=== PATIENT | female | born 1940 | race Caucasian/White ===

== ENCOUNTER 2023-12-26 12:15 | Emergency (ER) | payer MEDICARE, BC, SELFPAY ==
[2023-12-26 12:18] VITALS: BP 175/73
--- NOTE | 2023-12-26 12:57 | ED.GENMED ---
History of Present Illness
General
Chief Complaint: Fall
Source: patient
Exam Limitations: none
Time Seen by Provider: 12/26/23 12:46
Travel History
Have you had any contact with someone who has COVID-19?: No
Do you have any symptoms of coronavirus? Fever > 100 degrees, chills, cough, shortness of breath, sore throat, loss of taste or smell, muscle aches, or headache?: No
History of Present Illness
History of Present Illness:
83-year-old female presenting with right-sided back pain status post mechanical fall. Patient states that she was sitting in her recliner when she accidentally slid out onto the ground. Patient denies striking her head or loss of consciousness.
Patient reports right-sided posterior rib pain. Patient denies shortness of breath, chest pain, midline back pain, or extremity pain. Patient reports skin tear to right elbow. Tetanus unknown. Patient denies any elbow pain, numbness, weakness or
tingling.
Past History
Past History
ED Past Medical History: CAD, HTN, Hypercholesterolemia and Other (Arthritis)
ED Past Surgical History: Cardiac (CABG)
Social History
Tobacco: Former smoker
Phy Exam
Physical Exam
Physical Exam:
General: Alert, no acute distress
Head: NCAT
Eyes: clear conjunctiva
Neck: supple, no midline cervical tenderness to palpation
Chest: regular rate and rhythm, murmur. no anterior chest wall tenderness to palpation. rash
Lungs: clear to auscultation bilaterally. No wheezes, rales, or rhonchi. Speaking full unlabored sentences. No respiratory distress.
Abdomen: soft, nondistended nontender. No rebound or guarding.
MSK: no lower extremity edema bilaterally. No deformity. No midline thoracic or lumbar tenderness to palpation. no right elbow tenderness to palpation. right elbow full range of motion. 2+ radial pulse. right posterior rib pain to palpation. no step
off or deformity. no overlying
Skin: warm, dry. skin tear to right elbow, no active bleeding. no foreign bodies
Neuro: Alert and oriented x3. no focal deficits. ambulatory with walker (baseline)
Course
Orders/Labs/Results
Orders:
Orders
12/26/23 12:21
CR Elbow - Right Min 3 Views Urgent
Comment:
Reason For Exam: fall
Ribs, Right 3 View W/PA Chest [CR Ribs-right 3 Vw W/pa Chest*] Urgent
Comment:
Reason For Exam: fall
12/26/23 13:07
Tetanus/Diphth/Acelpertussis [Adacel] 0.5 ml IM .ONCE ONE
Vital Signs
Initial and Last Documented VS:
Initial Vital Signs
Temp Pulse Resp BP Pulse Ox
98.5 F 66 18 175/73 98
12/26/23 12:18 12/26/23 12:18 12/26/23 12:18 12/26/23 12:18 12/26/23 12:18
Last Documented Vital Signs
Temp Pulse Resp BP Pulse Ox
98.5 F 66 18 175/73 98
12/26/23 12:18 12/26/23 12:18 12/26/23 12:18 12/26/23 12:18 12/26/23 12:18
Comment
Comment:
Patient presents to the Emergency Department with ___right posterior rib pain, right elbow skin tear s/p mechanical fall
Number and Complexity of Problems Addressed at the Encounter
� Chronic conditions affecting care:
� Acute Exacerbation and/or Progression of Chronic Illness:
� Differential Diagnosis includes: rib fracture, pneumothorax, elbow fracture/dislocation, skin tear, mechanical fall
Amount and/or Complexity of Data to be Reviewed and Analyzed
� I performed an independent evaluation of and my interpretation is:
EKG:
CT:
Xrays: right elbow: no acute fracture or dislocation. xray ribs: no grossly displaced rib fractures, no pneumothorax
Laboratory Studies:
Other:
� Review of other/old records reveals:
� Clinical information was obtained by an independent historian:
� Prescriptions/Medications Considered but not given:
� Further testing considered but not performed:
Risk of Complications and/or Morbidity or Mortality of Patient Management
� Social Determinants of health affecting care:
� Discussion with other providers (PCP, Hospitalists, Consultants, etc):
� Escalation of care including admission/observation vs risk of discharge considered: 83-year-old female presenting status post mechanical fall with right posterior rib pain and right elbow skin tear. Patient denies any loss of consciousness, no
dizziness before or after fall. Patient denies any shortness of breath, back pain or extremity pain. Will obtain x-ray to assess for fracture, dislocation, pneumothorax. Will update tetanus, clean wound, xray right ribs and elbow which were
reviewed and negative. Cleaned wound with saline, applied steri strips to approximate skin tear. Patient walks with walker at baseline. Ambulatory with walker in ED. Will discharge home with PCP follow up
*Critical Care Note
Total Time (30-74mins, 75-104mins- exclusive of procedures): Not Applicable
ED Attending Note
-
Portions of this chart may have been created with voice recognition software.� Occasional wrong word or��sound alike� substitutions may have occurred due to the inherent limitations of voice recognition software.
Discharge Plan
Departure
Patient Disposition: Home (Routine Discharge)
Date of Disposition: 12/26/23
Time of Disposition: 13:32
Patient with high blood pressure during this ER visit?: Yes
Condition: Good
Discharge Problem:
Rib pain on right side, Skin tear of elbow without complication
Instructions: Skin Abrasions (DC), Bruised Rib (DC), BLOOD PRESSURE
Prescriptions:
No Action
atorvastatin 10 MG tablet
10 mg PO HS
lisinopril 20 MG tablet
20 mg PO HS
pramipexole 0.5 MG tablet
0.75 mg PO HS
hydrocodone-acetaminophen 1 TABLET tablet
1 tab PO BIDPRN PRN (Reason: moderate pain)
Patient Comments:
02/28/2021: last filled 01/20/21, 60 tabs for 30 days from [facility]
cephalexin 500 MG capsule
500 mg PO QID
levothyroxine 125 MCG tablet
125 mcg PO HS
metoprolol tartrate 50 MG tablet
25 mg PO BID
aspirin 81 MG tablet,chewable
81 mg PO HS
collagenase clostridium histo. [Santyl] 90 GM ointment
15 gm APPLIC DAILY Qty: 1 0RF
Referrals:
Lucia Allen PA-C [Family Provider] -
Activity Restrictions/Additional Instructions:
Follow up with primary care doctor in 1-2 days
Take tylenol 975mg every 6 hours as needed for pain
Return to the emergency department for shortness of breath or new/worsening symptoms
Interventions
Interventions:
*Risk Screen - Suicide Last Done: 12/26/23 12:18
*General Assessment Last Done: 12/26/23 12:18
*Neglect/Abuse Screening Last Done: 12/26/23 12:18
*ED COVID-19 Vaccine History Last Done: 12/26/23 12:18
*Nursing Disposition Last Done: 12/26/23 14:15
ED-Musculoskeletal Assessment Last Done: 12/26/23 12:56
ED- Neurological Assessment Last Done: 12/26/23 12:56
ED-Skin Assessment Last Done: 12/26/23 12:56
Discharge Date and Time
Discharge Date/Time: 12/26/23 14:15
Print Language: UKRAINIAN
[2023-12-26] MEDS: ADACEL 0.5 ML IM (13:26)
== END 2023-12-26 14:15 | disposition home or self-care (01) ==
LOC: EMR 12:15
PROVIDERS: EMERGENCY PHYSICIAN Emergency Medicine; FAMILY PHYSICIAN Physician Assistant Medical
DX: R07.81 Pleurodynia (principal); S51.011A Laceration without foreign body of right elbow, initial encounter; M54.9 Dorsalgia, unspecified; W07.XXXA Fall from chair, initial encounter; I25.10 Atherosclerotic heart disease of native coronary artery without angina pectoris; I10 Essential (primary) hypertension; M19.90 Unspecified osteoarthritis, unspecified site; E78.00 Pure hypercholesterolemia, unspecified; Z95.1 Presence of aortocoronary bypass graft; Z87.891 Personal history of nicotine dependence
CPT/HCPCS: 99284; 90471; 71101; 73080; 90715

== ENCOUNTER → 2023-12-28 11:14 | Outpatient (REF) | payer OTHER, MEDICARE, BC, SELFPAY ==
[2023-12-28 11:52] LABS: Hematocrit 38.7 % (37.0-47.0); Hemoglobin 12.7 g/dL (12.0-16.0); Mean Corp Hgb Conc. 32.8 g/dL (33.0-37.0); Mean Corpuscular Hgb 29.7 pg (27.0-31.0); Mean Corpuscular Volume 90.4 fL (81.0-99.0); Mean Platelet Volume 9.8 fL (7.4-10.4); Platelet Count 245 10^3/uL (130-400); Red Blood Cell Count 4.28 10^6/uL (4.20-5.40); Red Cell Dist. Width 14.6 % (11.5-14.5); White Blood Cell Count 11.7 10^3/uL (4.8-10.8)
[2023-12-28 12:13] LABS: ALT (SGPT) 12 U/L (0-35); AST (SGOT) 20 U/L (14-36); Alkaline Phosphatase 71 U/L (38-126); Blood Urea Nitrogen 21 mg/dl (7-17); Calcium 9.3 mg/dl (8.4-10.2); Carbon Dioxide 28 mmol/L (22-30); Chloride 101 mmol/L (98-107); Glucose 103 mg/dl (70-99); Magnesium 1.8 mg/dl (1.6-2.3); Sodium 133 mmol/L (135-145); Total Bilirubin 1.3 mg/dl (0.2-1.3); Total Protein 6.9 g/dl (6.3-8.2); eGFR > 60.00
[2023-12-28 12:27] LABS: Free T4 1.31 ng/dl (0.78-2.19)
[2023-12-28 12:42] LABS: TSH 3.58 uIU/ml (0.47-4.68)
== END ==
LOC: OLABWHC 11:14
PROVIDERS: ATTENDING PHYSICIAN Internal Medicine
DX: I10 Essential (primary) hypertension (principal); E03.9 Hypothyroidism, unspecified; I25.10 Atherosclerotic heart disease of native coronary artery without angina pectoris
CPT/HCPCS: 36415; 80053; 83735; 84439; 84443; 85027

== ENCOUNTER 2024-02-10 13:54 | Inpatient (IN) | payer MEDICARE, BC, SELFPAY ==
[2024-02-10] VITALS (12 sets, daily range): BP systolic 98–158; BP diastolic 52–123; BMI 20.5
[2024-02-10 11:05] LABS: % Basophils 0.2 % (0-2); % Eosinophils 0.1 % (0-6); % Immature Granulocytes 0.8 % (0-0.5); % Lymphocytes 8.7 % (20.5-51.1); % Neutrophils 83.2 % (42.2-75.2); Absolute Immature Granulocytes 0.1 10^3/uL (0-0.05); Absolute Lymphocytes 1.6 10^3/uL (1.2-3.4); Absolute Monocytes 1.3 10^3/uL (0.1-0.6); Absolute Neutrophils 15.5 10^3/uL (1.4-6.5); Hematocrit 33.1 % (37.0-47.0); Hemoglobin 11.5 g/dL (12.0-16.0); Mean Corp Hgb Conc. 34.7 g/dL (33.0-37.0); Mean Corpuscular Hgb 29.6 pg (27.0-31.0); Mean Corpuscular Volume 85.1 fL (81.0-99.0); Mean Platelet Volume 9.2 fL (7.4-10.4); Nucleated Red Blood Cells % 0 %; Platelet Count 283 10^3/uL (130-400); Red Blood Cell Count 3.89 10^6/uL (4.20-5.40); Red Cell Dist. Width 14.6 % (11.5-14.5); White Blood Cell Count 18.6 10^3/uL (4.8-10.8)
[2024-02-10] MEDS: NSS 500 IV (11:08)
[2024-02-10 11:09] LABS: ALT (SGPT) 20 U/L (0-35); AST (SGOT) 31 U/L (14-36); Albumin 3.8 g/dl (3.5-5.0); Alkaline Phosphatase 134 U/L (38-126); Blood Urea Nitrogen 36 mg/dl (7-17); Calcium 9.3 mg/dl (8.4-10.2); Carbon Dioxide 24 mmol/L (22-30); Chloride 102 mmol/L (98-107); Creatine Phosphokinase 374 U/L (30-135); Glucose 146 mg/dl (70-99); Potassium 3.7 mmol/L (3.5-5.1); Sodium 138 mmol/L (135-145); Total Bilirubin 1.3 mg/dl (0.2-1.3); Total Protein 6.7 g/dl (6.3-8.2); eGFR > 60.00
[2024-02-10 11:15] LABS: Lactic Acid 1.3 mmol/L (0.7-2.0)
[2024-02-10 12:08] LABS: Urine Albumin 1+ (Neg - Trace); Urine Bilirubin 1+ (Negative); Urine Character Very Cloudy (Clear); Urine Color Yellow; Urine Glucose Negative (Negative); Urine Ketone 1+ (Negative); Urine Leukocyte 2+ (Negative); Urine Nitrite Negative (Negative); Urine Occult Blood 1+ (Negative); Urine Specific Gravity 1.025 (<1.030); Urine Urobilinogen Negative (Neg - 1+)
--- NOTE | 2024-02-10 12:36 | ED.GENMED ---
History of Present Illness
General
Chief Complaint: Fall
Source: patient and family
Time Seen by Provider: 02/10/24 10:23
Travel History
Have you had any contact with someone who has COVID-19?: No
Do you have any symptoms of coronavirus? Fever > 100 degrees, chills, cough, shortness of breath, sore throat, loss of taste or smell, muscle aches, or headache?: No
History of Present Illness
History of Present Illness:
83-year-old female presents after she was found on the floor this morning by [facility] staff. Patient was reportedly given her meds last night. Patient arrives complaining of right leg pain. Unknown how long she was on the floor for.
Patient complains of pain in the right hip area. Is not sure if she hit her head. She denies neck or back pain. Found to be soiled with stool
Past History
Past History
ED Past Medical History: CAD, HTN, Hypercholesterolemia and Other (Arthritis)
ED Past Surgical History: Cardiac (CABG)
Social History
Tobacco: Former smoker
Phy Exam
Physical Exam
Physical Exam:
CONSTITUTIONAL Patient alert and oriented to person, place. ill-appearing. Vital signs reviewed.
HEAD atraumatic, normocephalic.
EYES eyelids normal to inspection, Extraocular muscles intact, Conjunctiva normal, Sclera normal.
NECK normal range of motion, Trachea midline, no jugular venous distention.
RESPIRATORY CHEST No respiratory distress noted, Chest expansion equal, diminished bilateral bases.
ABDOMEN abdomen nontender, Bowel sounds normal. No distention.
BACK skin breakdown noted to the right lateral posterior pelvic rim. Old skin breakdown noted to the posterior right shoulder.
UPPER EXTREMITY left elbow skin tear, right elbow skin breakdown.
LOWER EXTREMITY unable to range the right lower extremity due to pain in the right hip. There is tenderness at the right hip. Mild swelling to the proximal femur.
NEURO Speech normal, No focal motor deficits, Cranial Nerves intact to screening exam.
SKIN skin warm, dry, and normal in color.
Course
Orders/Labs/Results
Orders:
Orders
02/10/24 10:27
Hip, Right 2-3 Views [CR Hip - RT w/wo Pel 2-3 Vw*] Urgent
Comment:
Reason For Exam: R sided pain, possible fall
Include a pelvis x-ray?: Yes
02/10/24 10:29
CT Head W/o Iv Contrast Urgent
Comment:
Reason For Exam: possible fall
CR Chest - 2 Views Urgent
Comment:
Reason For Exam: possible fall
02/10/24 10:33
0.9% Sodium Chloride 500 ml [Nss] 500 ml IV BOLUS
02/10/24 10:48
CPK [Creatine Phosphokinase] Urgent
Complete Blood Count/With Diff Urgent
Comprehensive Metabolic Panel Urgent
Lactic Acid Q4H
Comment: CANCEL 2nd LACTIC ACID IF 1st LACTIC ACID IS LESS THAN 2
Blood Culture Q30M
KENDRA Source: Blood/Venous
Specimen Description:
Blood Culture Q30M
KENDRA Source: Blood/Venous
Specimen Description:
02/10/24 11:13
Urinalysis Reflex To Culture Urgent
Date Specimen was Collected: 02/10/24
Time Specimen was Collected: 11:07
Urine Microscopic Reflex Cult Urgent
Urine Culture Urgent
KENDRA Source: U
Specimen Description:
Date Specimen was Collected: 02/10/24
Time Specimen was Collected: 11:07
02/10/24 12:39
Electrocardiogram (*1) Urgent
Reason for Study: Other
Other Reason for Exam: weakness
EKG- Treatment ONCE
02/10/24 12:44
CefTRIAXone [Rocephin] 1,000 mg IV NOW STA
02/10/24 14:30
Lactic Acid Q4H
Comment: CANCEL 2nd LACTIC ACID IF 1st LACTIC ACID IS LESS THAN 2
Abnormal Lab Results
02/10/24 02/10/24
10:48 11:13
WBC 18.6 H 10^3/uL
(4.8-10.8)
RBC 3.89 L 10^6/uL
(4.20-5.40)
Hgb 11.5 L g/dL
(12.0-16.0)
Hct 33.1 L %
(37.0-47.0)
RDW 14.6 H %
(11.5-14.5)
Abs Immat Gran (auto) 0.1 H 10^3/uL
(0-0.05)
Absolute Neuts (auto) 15.5 H 10^3/uL
(1.4-6.5)
Absolute Monos (auto) 1.3 H 10^3/uL
(0.1-0.6)
Immature Gran % 0.8 H %
(0-0.5)
Neutrophils % 83.2 H %
(42.2-75.2)
Lymphocytes % 8.7 L %
(20.5-51.1)
BUN 36 H mg/dl
(7-17)
Glucose 146 H mg/dl
(70-99)
Alkaline Phosphatase 134 H U/L
(38-126)
Creatine Kinase 374 H U/L
(30-135)
Urine Ketones 1+ A
(Negative)
Ur Occult Blood Reflex 1+ A
(Negative)
Urine Bilirubin 1+ A
(Negative)
Leukocyte Esterase Rfl 2+ A
(Negative)
Urine RBC 11-15 A /HPF
(0-2)
Urine WBC (Reflex) 40-50 A /HPF
(0-5)
Urine Bacteria (Reflex) Many A
(Negative)
Urine Albumin (Reflex) 1+ A
(Neg - Trace)
02/10/24 10:48
02/10/24 10:48
Vital Signs
Initial and Last Documented VS:
Initial Vital Signs
Temp Pulse Resp BP Pulse Ox
97.2 F 76 16 142/53 86
02/10/24 10:20 02/10/24 10:20 02/10/24 10:20 02/10/24 10:20 02/10/24 10:20
Last Documented Vital Signs
Temp Pulse Resp BP Pulse Ox
97.2 F 74 19 143/66 94
02/10/24 10:20 02/10/24 12:30 02/10/24 12:30 02/10/24 12:01 02/10/24 12:30
MDM/Problems Addressed
MDM/Problems Addressed:
Hip fracture, volume depletion, UTI, skin tear
*Radiology
Radiology exam reviewed: preliminary read by ED provider (Neck fracture)
*Pulse Oximetry
Patient hypoxic: no
*Critical Care Note
Total Time (30-74mins, 75-104mins- exclusive of procedures): 30 minutes
Data Reviewed
Source: patient and family
Prescriptions/Medications Considered But Not Given:
Considered cervical spine imaging but no tenderness no pain
Patient Management
Discussion with other providers: Hospitalist and Assembly Supervisor (Discussed with orthopedics)
ED Attending Note
-
Portions of this chart may have been created with voice recognition software.� Occasional wrong word or��sound alike� substitutions may have occurred due to the inherent limitations of voice recognition software.
Discharge Plan
Departure
Patient Disposition: Admit
Date of Disposition: 02/10/24
Time of Disposition: 12:42
Admit to: Telemetry
Presentation/result/management discussed w/ accepting MD/DO: Hospitalist
Discharge Problem:
Closed hip fracture, MILD RHABDOMYOLYSIS, Volume depletion, Acute UTI
Prescriptions:
No Action
atorvastatin 10 MG tablet
10 mg PO HS
pramipexole 0.5 MG tablet
1 mg PO HS
hydrocodone-acetaminophen 1 TABLET tablet
1 tab PO Q6HPRN PRN (Reason: moderate pain)
metoprolol tartrate 50 MG tablet
12.5 mg PO BID
aspirin 81 MG tablet,chewable
81 mg PO DAILY
acetaminophen [Tylenol] 325 mg Tablet
650 mg PO Q6HPRN PRN (Reason: MILD PAIN)
oxybutynin chloride 10 mg Tablet Extended Release 24hr
10 mg PO DAILY
amoxicillin 500 mg Tablet
500 mg PO Q8H
amlodipine [Norvasc] 10 mg Tablet
10 mg PO DAILY
levothyroxine [Synthroid] 200 mcg Tablet
200 mcg PO DAILY
gabapentin 100 mg Capsule
200 mg PO HS
Referrals:
Lucia Allen PA-C [Family Provider] -
Interventions
Interventions:
*Risk Screen - Suicide Last Done: 02/10/24 10:20
*General Assessment Last Done: 02/10/24 10:20
*Neglect/Abuse Screening Last Done: 02/10/24 10:20
ED- Fall Risk Assessment Last Done: 02/10/24 11:25
ED-Musculoskeletal Assessment Last Done: 02/10/24 11:25
ED- Neurological Assessment Last Done: 02/10/24 11:25
ED-Skin Assessment Last Done: 02/10/24 11:25
Discharge Date and Time
Print Language: SUDANESE
[2024-02-10 12:37] LABS: Urine Bacteria Many (Negative); Urine White Cell 40-50 /HPF (0-5)
--- NOTE | 2024-02-10 13:24 | HPS.HSE ---
Family Physician
-
Family Physician: Lucia Allen
Chief Complaint
-
Hip fracture
History of Present Illness
83-year-old female found down on the ground and [facility]. Unable to get up. Transported to the emergency room and diagnosed with a right hip fracture.
Patient herself is a poor historian and details obtained mainly from daughter and records.
She currently has no complaints.
Medical History
Past Medical History
Past Medical History: Reports Other
Additional Past Medical History:
CAD
Essential hypertension
Hyperlipidemia
Hypothyroidism
Restless leg syndrome
Lumbar spinal stenosis
Head and neck cancer
Osteonecrosis of the jaw
Past Surgical History: Reports Other
Additional Past Surgical History:
CABG
Social History
Tobacco: Former Smoker
Alcohol: None
Drug: None
Living: Assisted Living
Family History
Family History: Not pertinent
Allergies / Home Medications
Allergies reflects when Allergies were last updated in [facility].
Home Medications with original date entered in [facility]
Allergy/Medication List:
Allergies
Allergy/AdvReac Type Severity Reaction Status Date / Time
No Known Allergies Allergy Verified 02/10/24 10:20
Home Medications
aspirin 81 mg chewable tablet 81 mg PO DAILY 02/28/21
atorvastatin 10 mg tablet 10 mg PO HS 02/28/21
hydrocodone 7.5 mg-acetaminophen 325 mg tablet 1 tab PO Q6HPRN PRN moderate pain 02/28/21
metoprolol tartrate 50 mg tablet 12.5 mg PO BID 02/28/21
pramipexole 0.5 mg tablet 1 mg PO HS 02/28/21
acetaminophen 325 mg tablet (Tylenol) 650 mg PO Q6HPRN PRN MILD PAIN 02/10/24
amlodipine 10 mg tablet (Norvasc) 10 mg PO DAILY 02/10/24
amoxicillin 500 mg tablet 500 mg PO Q8H 02/10/24
gabapentin 100 mg capsule 200 mg PO HS 02/10/24
levothyroxine 200 mcg tablet (Synthroid) 200 mcg PO DAILY 02/10/24
oxybutynin chloride 10 mg tablet,extended release 24 hr 10 mg PO DAILY 02/10/24
Review of Systems
-
Unable to obtain full review of systems at this time due to: Acuity
History Source: Family
A 12 point ROS was completed and negative except as noted: Yes
: Reports No Symptoms
Musculoskeletal: Reports Joint Pain (Right-sided hip pain)
Physical Exam
Vital Signs
Vital Signs
Temp Pulse Resp BP Pulse Ox
97.2 F 74 19 143/66 94
02/10/24 10:20 02/10/24 12:30 02/10/24 12:30 02/10/24 12:01 02/10/24 12:30
Physical Exam
General: Well Developed, Well Nourished, No Apparent Distress and Comfortable
HEENT: NormoCephalic and Anicteric
Respiratory: Clear
Cardiac: S1/S2 and Regular Rhythm
GI: Soft, Non Tender and Non Distended
Genito-urinary: Deferred by me
Musculoskeletal: No Clubbing, No Cyanosis, Edema, Left Lower Extremity and Edema, Right Lower Extremity
Skin: Warm, Dry and Other (Bilateral lower extremity hyperpigmentation, multiple skin tears on extremities)
Neuro: Awake and Alert
Hematologic/Lymphatic: No Lymphadenopathy
Psych: Calm
Laboratory Results
-
02/10/24 10:48
02/10/24 10:48
Laboratory Results
Lactic Acid 1.3 mmol/L (0.7-2.0) 02/10/24 10:48
Total Bilirubin 1.3 mg/dl (0.2-1.3) 02/10/24 10:48
AST 31 U/L (14-36) 02/10/24 10:48
ALT 20 U/L (0-35) 02/10/24 10:48
Alkaline Phosphatase 134 U/L (38-126) H 02/10/24 10:48
Impression/Plan
-
Acute traumatic right proximal femur intertrochanteric fracture -suspect related to fall out of bed, underlying osteoporosis.
Admit to MedSurg. Consult orthopedics. Analgesics. I spoke with Dr. Hough from orthopedics, plan for operative repair on Sunday. Okay to start Lovenox for DVT prophylaxis then hold on Sunday.
Appears medically stable to proceed for operative intervention. EKG today reviewed.
Presumed urinary tract infection -asymptomatic but pyuria noted. Check cultures. Continue empiric ceftriaxone for now. Given her underlying cognitive impairment she may not be a reliable historian.
Mild traumatic rhabdomyolysis -IV fluids. Apparently was found down on the ground by staff, unknown duration.
CAD/CABG -stable.
Essential hypertension -stable.
Hyperlipidemia -continue atorvastatin.
Hypothyroidism -continue levothyroxine.
Restless leg syndrome
History of head and neck cancer
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 On chronic suppressive amoxicillin.
DNR -confirmed with daughter.
Daughter Sivakumar updated at the bedside.
[2024-02-10] MEDS: ROCEPHIN 1000 MG IV (13:35)
[2024-02-10] MEDS: NSS 1000 IV (15:53)
[2024-02-10] MEDS: AMOXIL 500 MG PO ×2 (15:53→23:28)
--- NOTE | 2024-02-10 16:18 | PTCARENOTE ---
pt admitted to [facility]. pt states no pain when not moving. pt oriented to self. room air breath sounds diminished. ivf running as ordered. skin tears noted on both elbows and right bonilla at deferent stages of healing. sacrum st [address]
with small open area. red bruised area around neck. pt daughter states that is from radiation treatments.
[2024-02-10] MEDS: LOVENOX 40 MG SC (17:56)
[2024-02-10] MEDS: LOPRESSOR 12.5 MG PO (20:39)
[2024-02-10] MEDS: TYLENOL 650 MG PO (20:47)
[2024-02-10] MEDS: NEURONTIN 200 MG PO (23:27)
[2024-02-10] MEDS: LIPITOR 10 MG PO (23:28)
[2024-02-10] MEDS: MIRAPEX, GENERIC 1 MG PO (23:28)
[2024-02-11] MEDS: MORPHINE SULFATE 2 MG IV ×2 (00:49→06:16)
[2024-02-11] MEDS: NSS 1000 IV ×2 (05:04→17:54)
[2024-02-11 05:21] LABS: % Basophils 0.3 % (0-2); % Eosinophils 0.9 % (0-6); % Immature Granulocytes 0.5 % (0-0.5); % Lymphocytes 8.2 % (20.5-51.1); % Monocytes 9.1 % (1.7-9.3); Absolute Eosinophils 0.1 10^3/uL (0-0.7); Absolute Immature Granulocytes 0.1 10^3/uL (0-0.05); Absolute Monocytes 1.1 10^3/uL (0.1-0.6); Absolute Neutrophils 9.5 10^3/uL (1.4-6.5); Hematocrit 29.7 % (37.0-47.0); Hemoglobin 9.9 g/dL (12.0-16.0); Mean Corp Hgb Conc. 33.3 g/dL (33.0-37.0); Mean Corpuscular Hgb 29.6 pg (27.0-31.0); Mean Corpuscular Volume 88.9 fL (81.0-99.0); Mean Platelet Volume 9.2 fL (7.4-10.4); Nucleated Red Blood Cells % 0 %; Platelet Count 214 10^3/uL (130-400); Red Blood Cell Count 3.34 10^6/uL (4.20-5.40); Red Cell Dist. Width 14.6 % (11.5-14.5); White Blood Cell Count 11.7 10^3/uL (4.8-10.8)
[2024-02-11 05:48] LABS: ALT (SGPT) 18 U/L (0-35); AST (SGOT) 32 U/L (14-36); Alkaline Phosphatase 107 U/L (38-126); Blood Urea Nitrogen 32 mg/dl (7-17); Calcium 8.9 mg/dl (8.4-10.2); Carbon Dioxide 25 mmol/L (22-30); Chloride 108 mmol/L (98-107); Creatine Phosphokinase 425 U/L (30-135); Estimated Creatinine Clearance 57 ml/min; Glucose 99 mg/dl (70-99); Potassium 3.2 mmol/L (3.5-5.1); Sodium 141 mmol/L (135-145); Total Protein 5.6 g/dl (6.3-8.2); eGFR > 60.00
[2024-02-11 06:00] VITALS: BMI 19.9
--- NOTE | 2024-02-11 07:46 | W.PN.UPDATE ---
Update Note
Progress Note Update
Patient seen and examined and chart reviewed. Discussed with daughter at bedside.
83 yo F right IT femur fx
NWB RLE
NPO at midnight
Hold DVT ppx at midnight
medical management per primary team
Plan for OR tomorrow
Please reach out with any questions
Formal consult note to follow
[2024-02-11 08:10] VITALS: BP 137/56
[2024-02-11] MEDS: AMOXIL 500 MG PO ×3 (08:34→23:36)
[2024-02-11] MEDS: SYNTHROID 200 MCG PO (08:35)
[2024-02-11] MEDS: LOW STRENGTH ASPIRIN 81 MG PO (08:35)
[2024-02-11] MEDS: NORVASC 10 MG PO (08:35)
[2024-02-11] MEDS: LOPRESSOR 12.5 MG PO ×2 (08:35→19:45)
--- NOTE | 2024-02-11 11:14 | WOUNDNOTE ---
BUTTOCKS AND PERINEUM
--- NOTE | 2024-02-11 11:15 | WOUNDNOTE ---
CLIFFORD RN note: Patient admitted with closed R hip fracture, mild rhabdomyolysis and acute UTI.
See H&P for complete history. From [facility].
PMH: CABG, CAD,HTN spinal stenosis, arthritis, head and neck cancer-oral surgery and radiation.
Wound Location and type/assessment: Patient admitted with: R hip with what appears to be abraded skin/bruising from fall onto R hip vs stage 2 PI. Patient was found on the floor by nursing staff and unsure how long she was there. R elbow with dry
skin tear and bruising. Buttocks with b/l stage 1 PI. Heels with stage 1 PI, boggy red.
Appetite: NPO for OR tomorrow, otherwise appetite poor.
Pressure redistribution devices in place: On Air overlay with adequate inflation. Nurse assisted with turning patient. Folded air chair cushion placed under calves to offload heels.
Plan: Silicone foams applied to R upper hip wound, buttocks and heels. Skin prep applied to R elbow. Repositioned patient in bed with assist from nurse. Despite preventative measures in place, patient susceptible to developing/evolving PI due to
comorbidities and poor nutrition. Will confirm orders with hospitalist and updated nurse.
Updated care plan and will follow as needed.
Note to case management of equipment requested for discharge:Air mattress or air overlay.
Recommend follow up at wound care center upon discharge if not healing.
[2024-02-11] MEDS: ROCEPHIN 1000 MG IV (11:53)
[2024-02-11] MEDS: STERILE WATER FOR INJECTION 10 ML IV (11:53)
[2024-02-11 15:27] VITALS: BP 164/65
--- NOTE | 2024-02-11 16:21 | CM ---
Needs IA- left VM for [facility] PCU for PLOF, awaiting call back
Plan for R hip ORIF tomorrow 02/11, will likely need higher level of care on dc
Discharge Disposition- anticipate need for SNF
--- NOTE | 2024-02-11 17:17 | CON.ORTHO ---
Consultation
-
Date/Time Consultation Requested: 1230 PM 02/10/2024
Date/Time Consultation Performed: 715 AM 02/11/2024
Requesting Provider: Primary
Performing Provider: [place]
Reason for Consultation: Right hip fracture
Consultation - Orthopedics
History
HPI: 83-year-old female history of coronary artery disease presented to the emergency department status post fall unwitnessed at her living facility with complaints of right hip pain and inability to bear weight. She was seen emergency department
diagnosed with right intertrochanteric femur fracture. She was admitted to the hospital service for ambulatory dysfunction orthopedics was consulted for further evaluation and treatment. This morning patient is somewhat lethargic. She is reported
poor historian. Her daughter is at bedside who provides history. Reports that she lives at [facility] and has had several falls recently. She has been using a walker more recently for ambulatory assistance. Pain is well localized to the
right hip and groin region.
Allergies / Home Medications
Past medical history: Coronary artery disease, hypertension, hypercholesterolemia, osteonecrosis of jaw, head and neck cancer
Past surgical history: CABG
Family history: Not pertinent
Social history: Lives at assisted living facility, former smoker reportedly
Allergy/AdvReac Type Severity Reaction Status Date / Time
No Known Allergies Allergy Verified 02/10/24 10:20
�Medication �Instructions �Recorded
aspirin 81 mg chewable tablet 81 mg PO DAILY Blood Clot 02/28/21
Prevention/Tx
atorvastatin 10 mg tablet 10 mg PO HS High Cholesterol 02/28/21
hydrocodone 7.5 mg-acetaminophen 1 tab PO Q6HPRN PRN moderate pain 02/28/21
325 mg tablet
metoprolol tartrate 50 mg tablet 12.5 mg PO BID Blood Pressure 02/28/21
pramipexole 0.5 mg tablet 1 mg PO HS RESTLESS LEG 02/28/21
acetaminophen 325 mg tablet 650 mg PO Q6HPRN PRN MILD PAIN 02/10/24
(Tylenol)
amlodipine 10 mg tablet (Norvasc) 10 mg PO DAILY Blood Pressure 02/10/24
amoxicillin 500 mg tablet 500 mg PO Q8H DENTAL/MANDIBULAR 02/10/24
INFECT
gabapentin 100 mg capsule 200 mg PO HS Neurological Condition 02/10/24
levothyroxine 200 mcg tablet 200 mcg PO DAILY Thyroid 02/10/24
(Synthroid)
oxybutynin chloride 10 mg 10 mg PO DAILY Urinary Issue 02/10/24
tablet,extended release 24 hr
Vital Signs / Lab Results
Temp Pulse Resp BP Pulse Ox
99.2 F 63 24 164/65 99
02/11/24 15:27 02/11/24 15:27 02/11/24 15:27 02/11/24 15:27 02/11/24 15:27
02/11/24 04:48
02/11/24 04:48
10 point review systems reviewed and negative unless otherwise stated
General: Pleasant, no acute distress, somewhat lethargic, poor historian
Musculoskeletal right lower extremity
Skin intact, no erythema, no ecchymotic staining
There is tenderness palpation over lateral trochanteric flare and groin
Pain with motion of the right leg and groin
No tenderness palpation over the knee
Positive EHL, FHL, ankle dorsiflexion, plantarflexion
Leg is shortened and rotated
No other areas of bony tenderness palpation crepitation tertiary examination of long bones and joints
Diagnostic studies
X-rays right hip taken the emergency department dependently viewed by myself show a right intertrochanteric femur fracture
Assessment / Plan
83-year-old female history of coronary artery disease, questionable historian status post fall with right intertrochanteric femur fracture. I had a long discussion with the patient as well as the daughter at bedside regarding diagnosis and
treatment options. We discussed both surgical and nonsurgical options. After discussion patient elected to proceed with intramedullary nail fixation right intertrochanteric femur fracture. We discussed risks benefits and alternatives of surgery.
Discussed the usual expected perioperative postoperative course. Patient's daughter does report to me that she is not be patient's medical power of family law attorney is actually her sister. I did try to call her sister but was unable to reach her. I will
plan to reach out again prior to any surgery to obtain informed consent and discussed details of surgery
Home nonweightbearing right lower extremity
PT OT: Deferred to postoperative setting
DVT prophylaxis: Hold in a.m. in preparation for OR
Pain control
N.p.o. at midnight
Medical management per primary team
Plan: 2 OR tomorrow for operative fixation right intertrochanteric femur fracture pending or availability and medical clearance
[2024-02-11] MEDS: MORPHINE SULFATE 1 MG IV (17:59)
[2024-02-11 18:38] VITALS: BP 145/59
[2024-02-11] MEDS: ROXICODONE 5 MG PO (18:39)
--- NOTE | 2024-02-11 19:28 | W.PN.HOSP.TC ---
Addendum entered and electronically signed by Dav Gutierrez MD 02/11/24 23:36:
Attending Addendum-
I saw and evaluated the patient. I reviewed the resident�s note and agree with findings and plan as documented in the resident�s note. complains of pain in right hip. Full 12 point ROS reviewed and negative except as documented Exam: Vitals reviewed
in chart GEN-nad heart sm @ RUSB lungs clear abd soft LE RLE shortened mildly ext rotated +2 distal pulses B/L
# Acute traumatic right proximal femur intertrochanteric fracture
- NWB pain control
- OR in am
- NPO p MN
- medically optimized for OR.
- hold lovenox tonight
# UTI -asymptomatic but patient poor historian.
- continue ceftriaxone
- await C and S
# Mild CPK Elevation -IV fluids
- found down unknown time by staff
# CAD/CABG -cont asa metoprolol stable monitor
#Essential hypertension - cont metoprol stable monitor
# Hyperlipidemia -continue atorvastatin.
# Hypothyroidism -continue levothyroxine.
# Restless leg syndrome - cont pramipexole
# History of head and neck cancer
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
DNR -confirmed with daughter.
Dispo- Eventual DC to [facility]
Time spent coordinating care, review of plan of care with resident, review of records, med rec, consults, notes, labs, rads, d/w nursing � 59 mins
Original Note:
Today's Communication/Plan
-
N.p.o. after midnight
Hold Lovenox, aspirin
Pain control as needed
Assessment / Plan
Assessment / Plan
#Acute traumatic right proximal femur intertrochanteric fracture
Possibly due to fall
CT head�no evidence of acute bleed
X-ray hip- Intertrochanteric fracture of the right proximal femur.
Orthopedics consulted
Scheduled for intramedullary nail fixation right intertrochanteric femur fracture in the a.m. tomorrow
Pain controlled with analgesics as needed
Nonweightbearing right lower extremity
N.p.o. at midnight
Hold Lovenox before surgery
Revised cardiac risk index for preoperative risk- class II risk
Appears medically stable to proceed for operative intervention. EKG today reviewed.
#Urinary tract infection
Patient is asymptomatic
Urine culture� E. coli
Continue ceftriaxone for 3 days.
#Elevated CPK
CPK 425
IV fluids
Trend CMP
#CAD/CABG -stable.
Echo 07/11/2022- . Normal left ventricular size and systolic function without regional wall
motion abnormalities. Estimated LV ejection fraction of 55 to 60% by visual
estimation, 56% by Gardner's method. Mild concentric left ventricular
hypertrophy. Stage I diastolic dysfunction suggestive of abnormal relaxation.
2. Normal right ventricular size and systolic function.
3. Thickened mitral valve leaflets with mitral annular calcification. Mild
mitral regurgitation.
4. Calcified trileaflet aortic valve with thickened leaflets and mildly
decreased excursion. Trace aortic regurgitation. Mild aortic stenosis. Peak
and mean gradients across the aortic valve are 21 and 9 mmHg respectively with
calculated aortic valve area of 1.9 cm2. Dimensionless index of 0.5.
5. Trace tricuspid regurgitation. Estimated PA pressure of 31 mmHg assuming a
right atrial pressure of 3 mmHg
6. No pericardial effusion
#Essential hypertension
Continue amlodipine, metoprolol titrate
#Hyperlipidemia
continue atorvastatin.
#Hypothyroidism
continue levothyroxine.
#Restless leg syndrome
Continue pramipexole
#History of head and neck cancer
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
#DVT prophylaxis
Lovenox 40 mg sc
Hold after midnight today
Anticipated Discharge: > 48 hours
Subjective/Interval History
-
Date of Service: February 11, 2024
83-year-old female with past medical history significant for coronary artery disease, hypertension hyperlipidemia, hypothyroidism, osteonecrosis of the jaw, lumbar spinal stenosis presented to the emergency department after she was found on the
floor by [facility] staff soiled with stool. Patient was not able to recollect what has happened when she fell. She reported having right hip pain on arrival and diagnosed with right intertrochanteric femur fracture in the ER. Orthopedics
was consulted for further evaluation and treatment, and after discussion she is scheduled for intramedullary nail fixation of right intertrochanteric femur fracture. Patient has a couple of recent ER admissions involving falls and blunt trauma on
her face. She has been using a walker more recently for ambulatory assistance. This morning patient is somewhat lethargic and drowsy. Patient reports having pain localized to the right hip region. She is on 2 L oxygen, saturating at 96%.
She was straight cathed in the morning with 550 ml urine output, she had mild incontinence after that.
Objective Data
-
Vital Signs:
Vital Signs
Temp Pulse Resp BP Pulse Ox
99.2 F 63 24 145/59 99
02/11/24 15:27 02/11/24 15:27 02/11/24 15:27 02/11/24 18:38 02/11/24 15:27
I&O
02/10/24 02/11/24 02/12/24
06:59 06:59 06:59
Intake Total 620 / 620 1080 / 1080
Output Total 600 / 600
Balance 620 / 620 480 / 480
Review of Systems
-
All other systems: Reviewed and negative (As per HPI)
Physical Exam
-
General: No Apparent Distress and Comfortable
HEENT: Normocephalic and Atraumatic
Respiratory: Crackles (Bilateral basal)
Cardiac: S1/S2 and Murmur
Musculoskeletal: Other (Right lower extremity-appears to be shortened and externally rotated, tenderness to palpation in the right groin and hip, neurovasculature intact, range of motion decreased due to pain.)
Skin: Warm and Dry
Neuro: Awake, Alert and Oriented
[2024-02-11] MEDS: DESENEX/MITRAZOL/ZEASORB 1 APPLIC TOPICAL (19:44)
[2024-02-11] MEDS: NEURONTIN 200 MG PO (21:26)
[2024-02-11] MEDS: LIPITOR 10 MG PO (21:27)
[2024-02-11] MEDS: MIRAPEX, GENERIC 1 MG PO (21:27)
[2024-02-11 23:10] VITALS: BP 123/74
[2024-02-12] VITALS (15 sets, daily range): BP systolic 106–156; BP diastolic 54–78; PULSE 79; O2SAT 91
[2024-02-12] MEDS: TYLENOL 650 MG PO (02:33)
[2024-02-12] MEDS: MORPHINE SULFATE 1 MG IV ×2 (03:08→16:38)
[2024-02-12] MEDS: LOPRESSOR 12.5 MG PO ×2 (07:37→19:54)
[2024-02-12] MEDS: AMOXIL 500 MG PO ×2 (07:37→16:37)
[2024-02-12] MEDS: SYNTHROID 200 MCG PO (07:38)
[2024-02-12] MEDS: NORVASC 10 MG PO (07:38)
[2024-02-12] MEDS: DESENEX/MITRAZOL/ZEASORB 1 APPLIC TOPICAL ×2 (07:38→19:53)
[2024-02-12 08:31] LABS: Hematocrit 28.7 % (37.0-47.0); Hemoglobin 9.9 g/dL (12.0-16.0); Mean Corp Hgb Conc. 34.5 g/dL (33.0-37.0); Mean Corpuscular Hgb 29.7 pg (27.0-31.0); Mean Corpuscular Volume 86.2 fL (81.0-99.0); Mean Platelet Volume 9.3 fL (7.4-10.4); Platelet Count 203 10^3/uL (130-400); Red Blood Cell Count 3.33 10^6/uL (4.20-5.40); Red Cell Dist. Width 14.4 % (11.5-14.5); White Blood Cell Count 9.9 10^3/uL (4.8-10.8)
[2024-02-12 08:42] LABS: ALT (SGPT) 16 U/L (0-35); AST (SGOT) 28 U/L (14-36); Albumin 2.8 g/dl (3.5-5.0); Alkaline Phosphatase 102 U/L (38-126); Blood Urea Nitrogen 18 mg/dl (7-17); Calcium 8.6 mg/dl (8.4-10.2); Carbon Dioxide 27 mmol/L (22-30); Chloride 108 mmol/L (98-107); Estimated Creatinine Clearance 55 ml/min; Glucose 104 mg/dl (70-99); Potassium 2.8 mmol/L (3.5-5.1); Sodium 142 mmol/L (135-145); Total Protein 5.6 g/dl (6.3-8.2); eGFR > 60.00
--- NOTE | 2024-02-12 09:23 | PN.CDI ---
CDI
- -
CDI:
Physician Documentation Request
Admit Date: 02/10/24 13:54
Dear Doctor,
Please review the following and provide your response in the progress notes.
Clinical Indicators:
02/11/24 11:15 (created 02/11/24 11:41) - Wound Note
#Wound Location and type/assessment:
#...R hip with what appears to be abraded skin/bruising from fall onto R hip vs stage 2 PI.
#...Buttocks with b/l stage 1 PI.
#...Heels with stage 1 PI, boggy red.
Physician documentation of the type and location of wounds is required for compliant documentation. Based on the above clinical findings and your assessment, please provide the following in your progress note:
Yes, right hip stage 2 PI, bilateral buttocks stage 1 PI, bilateral heels stage 1 PI, POA
No, right hip stage 2 PI, bilateral buttocks stage 1 PI, bilateral heels stage 1 PI
Other(please specify)
1. Location of the ulcer/wound, including laterality.
2. Type (etiology) of ulcer/wound:
- Diabetic ulcer
- Arterial (ischemic) ulcer
- Traumatic wound
- Venous stasis ulcer
- Pressure (decubitus) ulcer
4. If a pressure ulcer, please also include the stage* of the ulcer:
- Stage 1 - Skin intact, non-blanchable redness
- Stage 2 - Partial thickness loss of dermis, includes intact or open blister
- Stage 3 - Full thickness tissue not including bone, tendon or muscle
- Stage 4 - Full thickness tissue loss, including exposed bone, tendon or muscle
Use of terms such as suspected, likely, concern for, or probable (associated with a specific diagnosis that is being evaluated, monitored, or treated as if it exists) are acceptable and can be coded in the inpatient setting, when documented at the
time of discharge.
Thank you,
Amanda Carpenter RN BSN CCDS
CDI Specialist
please contact via tiger text
Please use your independent medical judgment in providing your response.
*Source: National Pressure Ulcer Advisory Panel (NPUAP)
--- NOTE | 2024-02-12 10:49 | OR.RPT ---
Operative Report
Operative Report
Anesthesia Type:
Spinal
Operative Indications:
Right intertrochanteric femur fracture
Operative Findings :
Same with some comminution greater trochanteric
Complications:
None
Implants:
10 mm x 125 degree gamma nail, short
Procedure and Technique:
Insertion right short cephalomedullary nail
INDICATIONS FOR PROCEDURE:
83-year-old patient presented status post mechanical fall from assisted living facility. They were subsequently diagnosed with an intertrochanteric femur fracture. Orthopedics was consulted for further evaluation and treatment. After discussion
with the patient and her family, decision was made to proceed with operative intervention in the form of cephalomedullary nail. Long discussion was had regarding risks and benefits of procedure. Risks include but are not limited to infection,
blood loss, damage to surrounding structures, persistent pain, loss of function, need for repeat surgery, implant cut out, periprosthetic fracture, DVT/PE and adverse risks of anesthesia. Benefits include early mobilization and fracture
stabilization. After discussion written informed consent was obtained from both the patient as well as her daughter who is her medical power of kiln worker
OPERATIVE PROCEDURE:
[
Patient was seen and identified in the preoperative holding area. Operative extremity was marked. Patient was taken to the operating room and provided anesthesia by the anesthesia team. Placed supine on fracture table. Nonoperative extremity was
placed in a scissored position and padded with a gel pad to the central post of the fracture table. Operative extremity was placed in a well-padded fracture boot. Biplanar fluoroscopy confirmed appropriate reduction after axial traction, adduction
and slight internal rotation of the fracture. There was noted to be significant greater trochanter comminution operative extremity was then prepped and draped in normal sterile fashion. Timeout was performed again identifying the operative
extremity correctly. Preoperative antibiotics were addressed.
Approximately 5 cm incision was made 2 fingerbreadths proximal to the greater trochanter. Sharp dissection was carried through skin and subcutaneous tissues deep fascial layers. Guidepin was then inserted under biplanar fluoroscopic guidance
through the greater trochanter in accordance with the implants operative technique. This was inserted to a depth just distal to the lesser trochanter. Proximal opening reamer was then utilized. A 10 millimeter X 130 degree short cephalomedullary
nail was then inserted to the appropriate depth. Trocar was then inserted through the aiming arm. Sharp dissection was then carried through skin and subcutaneous tissues as well as deep fascial layers. Guidewire was inserted through the trocar
into the femoral neck and head. Appropriate position was confirmed under biplanar fluoroscopy. Attention was made to minimize the tip apex distance. Measurements were obtained for the cephalomedullary screw. Cannulated drill was then drilled to
the appropriate depth followed by the insertion of cannulated cephalomedullary screw. Appropriate final position of the screw within the confines of the femoral neck and head were confirmed again on biplanar fluoroscopy. Additional trocar was then
inserted through the aiming arm for the distal interlocking screw. Sharp dissection was carried through skin, subcutaneous tissues and deep fascial layers. Appropriate length interlocking screw was then drilled and inserted. Final appropriate
positioning was confirmed again on biplanar fluoroscopy. Satisfied with the extent of surgery, wounds were copiously irrigated with normal saline solution and closed in a layered fashion utilizing 0 Vicryl for deep fascial layer, 2-0 Vicryl for
subcu cutaneous layer and justin for skin. Aquacel dressings were applied. Anesthesia was reversed and patient was taken to the operating room in stable condition. Postoperative plans will include weightbearing to the patient's tolerance
operative extremity. Recommend 28 days of DVT prophylaxis consisting of renally dosed Lovenox daily
Disposition:
PACU stable condition
[2024-02-12] MEDS: NSS 1000 IV ×2 (11:34→21:22)
--- NOTE | 2024-02-12 12:05 | SUR.PHASEI ---
Addendum entered by Rodríguez Kim 02/12/24 12:07:
Leroy Kim PROFESSOR OF PUBLIC ADMINISTRATION.
Original Note:
[place] texted Dr Gutierrez regarding KCL replacement orders. I informed him that the patient did receive replacement in OR, amount communicated. Dr Gutierrez states he will put IV replacement on hold. Debra BARBER [facility] [address] has the po replacement dose.
--- NOTE | 2024-02-12 12:11 | PTCARENOTE ---
Pt returned to 2S in bed. R aqaucels x2 C/D/I, existing blisters/scabs surrounding upper area of proximal aquacel noted. RLE with decreased movement, neurovascular assessment otherwise intact. IVF infusing per order. Bed locked and in the lowest
position, safety maintained. Daughters at bedside, call mcneill within reach.
[2024-02-12] MEDS: NSS IV (13:02)
[2024-02-12] MEDS: STERILE WATER FOR INJECTION 10 ML IV (13:06)
[2024-02-12] MEDS: ROCEPHIN 1000 MG IV (13:07)
--- NOTE | 2024-02-12 13:13 | PTCARENOTE ---
Pt with no urine output since being straight cathed approx 0430 am. Denies urge to void or discomfort. Pt bladder scanned for 363 cc urine. Unable to void. Dr Hodgson aware and directed RN to continue urinary retention protocol and straight cath
when bladder scan >400. Care ongoing at this time.
[2024-02-12] MEDS: KCL 40 MEQ PO (13:37)
--- NOTE | 2024-02-12 15:49 | CM ---
natural resource manager reviewed patient's chart and met with patient and patient states that she lives alone at [facility], patient is independent with adl's and uses a walker with ambulation, patient has a prescription plan and uses
[facility].
PCP: Lucia Allen
Plan; natural resource manager reviewed patient's chart and spoke with physical therapy who are recommending skilled placement, referral sent to [facility] as requested by patient.
[2024-02-12] MEDS: ANCEF 5 IV (17:11)
--- NOTE | 2024-02-12 18:04 | W.PN.HOSP.TC ---
Addendum entered and electronically signed by Dav Gutierrez MD 02/12/24 20:21:
Attending Addendum-
I saw and evaluated the patient. I reviewed the resident�s note and agree with findings and plan as documented in the resident�s note. seen post op. pain much better controlled. seen with daughters present. called by nursing re urinary retention
requiring striaght cath. Full 12 point ROS reviewed and negative except as documented Exam: Vitals reviewed in chart GEN-nad heart sm @ RUSB lungs clear abd soft LE RLE hip aquacell in place. no blood noted on bandage +2 distal pulses B/L
# Acute traumatic right proximal femur intertrochanteric fracture
- s/p right short CM nail on 02/11- Dr Hough
- WBAT PT OT pain control
- Lovenox for DVT proph x 35 days
# UTI
- asymptomatic but patient poor historian.
- continue ceftriaxone x 3 days
- reviewed c and s - ecoli
#Urinary Retention-
- post op
- start flomax
- cont straight cath prn PVR > 400mls
- may need short term bustos but will avoid if able
# Hypokalemia-
- check mag
- replete aggressively
- repaet BMP in am
# Mild CPK Elevation
-IV fluids
-found down unknown time by staff
# Right hip stage 2 PI, bilateral buttocks stage 1 PI, bilateral heels stage 1 PI
- POA
- cont wound care
# CAD/CABG -cont asa metoprolol stable monitor
#Essential hypertension - cont metoprolol stable monitor
# Hyperlipidemia -continue atorvastatin.
# Hypothyroidism -continue levothyroxine.
# Restless leg syndrome - cont pramipexole
# History of head and neck cancer
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
DNR -confirmed with daughter.
Dispo- Eventual DC to SNF on DC- patient resides at [facility]
Time spent coordinating care, review of plan of care with resident, review of records, med rec, consults, notes, labs, rads, d/w nursing and daughters � 56 mins
Original Note:
Today's Communication/Plan
-
.
Assessment / Plan
Assessment / Plan
#Acute traumatic right proximal femur intertrochanteric fracture s/p surgery ( Insertion right short cephalomedullary nail )
Fracture possibly due to fall
CT head�no evidence of acute bleed
X-ray hip- Intertrochanteric fracture of the right proximal femur.
Orthopedics consulted
Revised cardiac risk index for preoperative risk- class II risk
Operated today- Insertion right short cephalomedullary nail
Pain control with analgesics as needed
Nonweightbearing right lower extremity
Resume Lovenox, Aspirin from tomorrow
Regular diet
#Urinary tract infection
Patient is asymptomatic
Urine culture� E. coli
Continue ceftriaxone for 3 days.today is day 2.
#Elevated CPK
CPK 425
IV fluids
Trend CMP
# Patient on 2 L oxygen
O2 sat dipped to 87% on weaning
Bilateral crackles
Continue oxygen
Incentive spirometry
#CAD/CABG -stable.
Echo 07/11/2022- 1. Normal left ventricular size and systolic function without regional wall
motion abnormalities. Estimated LV ejection fraction of 55 to 60% by visual
estimation, 56% by Gardner's method. Mild concentric left ventricular
hypertrophy. Stage I diastolic dysfunction suggestive of abnormal relaxation.
2. Normal right ventricular size and systolic function.
3. Thickened mitral valve leaflets with mitral annular calcification. Mild
mitral regurgitation.
4. Calcified trileaflet aortic valve with thickened leaflets and mildly
decreased excursion. Trace aortic regurgitation. Mild aortic stenosis. Peak
and mean gradients across the aortic valve are 21 and 9 mmHg respectively with
calculated aortic valve area of 1.9 cm2. Dimensionless index of 0.5.
5. Trace tricuspid regurgitation. Estimated PA pressure of 31 mmHg assuming a
right atrial pressure of 3 mmHg
6. No pericardial effusion
#Essential hypertension
Continue amlodipine, metoprolol titrate
#Hyperlipidemia
continue atorvastatin.
#Hypothyroidism
continue levothyroxine.
#Restless leg syndrome
Continue pramipexole
#History of head and neck cancer
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
#DVT prophylaxis
Resume Lovenox 40 mg sc, from tomorrow.
#PT/OT eval
Anticipated Discharge: 24 - 48 hours
Subjective/Interval History
-
Date of Service: February 12, 2024
Patient appears stable after the surgery, conversive. Anticipated pain in the surgical site.
Objective Data
-
Labs:
Laboratory Results
02/12/24
08:10
WBC 9.9
Hgb 9.9 L
Hct 28.7 L
Plt Count 203
Sodium 142
Potassium 2.8 L
Chloride 108 H
Carbon Dioxide 27
BUN 18 H
Creatinine 0.4 L
Glucose 104 H
Calcium 8.6
Total Bilirubin 1.0
AST 28
ALT 16
Alkaline Phosphatase 102
Vital Signs:
Vital Signs
Temp Pulse Resp BP Pulse Ox
98.4 F 66 16 130/68 95
02/12/24 17:40 02/12/24 17:40 02/12/24 17:40 02/12/24 17:40 02/12/24 17:40
I&O
02/11/24 02/12/24 02/13/24
06:59 06:59 06:59
Intake Total 620 / 620 2040 / 2040 120 / 120
Output Total 1500 / 1500 350 / 350
Balance 620 / 620 540 / 540 -230 / -230
Review of Systems
-
All other systems: Reviewed and negative (as per hpi)
Physical Exam
-
General: No Apparent Distress
HEENT: Normocephalic and Atraumatic
Respiratory: Crackles
Cardiac: S1/S2 and Murmur
Musculoskeletal: Other (Intact neurovasculature both lower extremities, Aquacel dressing on the operated site-right hip )
Skin: Other (Abrasions on the right elbow, right posterior upper hip covered with dressing.)
Neuro: Awake, Alert, Oriented and AO x 3
[2024-02-12] MEDS: ROXICODONE 5 MG PO (18:21)
[2024-02-12] MEDS: COLACE 100 MG PO (19:53)
[2024-02-12] MEDS: LIPITOR 10 MG PO (21:21)
[2024-02-12] MEDS: MIRAPEX, GENERIC 1 MG PO (21:21)
[2024-02-12] MEDS: NEURONTIN 200 MG PO (21:21)
[2024-02-13] VITALS (7 sets, daily range): BP systolic 101–138; BP diastolic 54–72; PULSE 63–73; O2SAT 86
[2024-02-13] MEDS: AMOXIL 500 MG PO ×4 (00:12→23:19)
[2024-02-13] MEDS: ANCEF 5 IV (02:25)
[2024-02-13] MEDS: MORPHINE SULFATE 1 MG IV ×3 (04:06→17:16)
[2024-02-13 05:38] LABS: Magnesium 1.7 mg/dl (1.6-2.3)
[2024-02-13] MEDS: NSS 1000 IV ×2 (06:35→16:00)
[2024-02-13 07:06] LABS: % Basophils 0.1 % (0-2); % Immature Granulocytes 0.8 % (0-0.5); % Lymphocytes 8.2 % (20.5-51.1); % Monocytes 9.6 % (1.7-9.3); % Neutrophils 81.3 % (42.2-75.2); Absolute Immature Granulocytes 0.1 10^3/uL (0-0.05); Absolute Lymphocytes 0.7 10^3/uL (1.2-3.4); Absolute Monocytes 0.9 10^3/uL (0.1-0.6); Absolute Neutrophils 7.3 10^3/uL (1.4-6.5); Hematocrit 24.4 % (37.0-47.0); Hemoglobin 8.4 g/dL (12.0-16.0); Mean Corp Hgb Conc. 34.4 g/dL (33.0-37.0); Mean Corpuscular Hgb 29.7 pg (27.0-31.0); Mean Corpuscular Volume 86.2 fL (81.0-99.0); Mean Platelet Volume 9.9 fL (7.4-10.4); Nucleated Red Blood Cells % 0 %; Platelet Count 177 10^3/uL (130-400); Red Blood Cell Count 2.83 10^6/uL (4.20-5.40); Red Cell Dist. Width 14.1 % (11.5-14.5)
[2024-02-13 07:20] LABS: ALT (SGPT) 15 U/L (0-35); AST (SGOT) 26 U/L (14-36); Albumin 2.6 g/dl (3.5-5.0); Alkaline Phosphatase 89 U/L (38-126); Blood Urea Nitrogen 19 mg/dl (7-17); Calcium 8.5 mg/dl (8.4-10.2); Carbon Dioxide 25 mmol/L (22-30); Chloride 107 mmol/L (98-107); Estimated Creatinine Clearance 55 ml/min; Glucose 143 mg/dl (70-99); Sodium 137 mmol/L (135-145); Total Bilirubin 0.7 mg/dl (0.2-1.3); Total Protein 5.2 g/dl (6.3-8.2); eGFR > 60.00
[2024-02-13] MEDS: SYNTHROID 200 MCG PO (08:29)
[2024-02-13] MEDS: COLACE 100 MG PO ×2 (08:30→19:38)
[2024-02-13] MEDS: NORVASC 10 MG PO (08:30)
[2024-02-13] MEDS: FLOMAX 0.400000000000000022 MG PO (08:30)
[2024-02-13] MEDS: DESENEX/MITRAZOL/ZEASORB 1 APPLIC TOPICAL ×2 (08:31→19:38)
[2024-02-13] MEDS: LOPRESSOR 12.5 MG PO ×2 (08:31→21:11)
[2024-02-13] MEDS: LOVENOX 40 MG SC (08:31)
--- NOTE | 2024-02-13 09:06 | PN.CDI ---
CDI
- -
CDI:
Physician Documentation Request
Admit Date: 02/10/24 13:54
Dear Doctor,
Please review the following and provide your response in the progress notes.
Clinical Indicators:
02/09 Right intertrochanteric femur fracture
02/11 Insertion right short cephalomedullary nail
Laboratory Tests
02/10/24 02/11/24 02/12/24
10:48 04:48 08:10
Hgb 11.5 L 9.9 L 9.9 L
Hct 33.1 L 29.7 L 28.7 L
02/13/24
06:42
Hgb 8.4 L
Hct 24.4 L
Based on the above, please clarify, in the progress note, which of the following is the most likely type of anemia you are evaluating, monitoring and/or treating?
Acute blood loss anemia with baseline chronic anemia (Specify type)
Anemia of chronic disease - indicate if neoplastic disease, CKD or other
Other(please specify)
Use of terms such as suspected, likely, concern for, or probable (associated with a specific diagnosis that is being evaluated, monitored, or treated as if it exists) are acceptable and can be coded in the inpatient setting, when documented at the
time of discharge.
Thank you,
Amanda Carpenter RN BSN CCDS
CDI Specialist
please contact via tiger text
Please use your independent medical judgment in providing your response.
--- NOTE | 2024-02-13 09:58 | W.PN.HOSP.TC ---
Addendum entered and electronically signed by Dav Gutierrez MD 02/13/24 23:08:
Attending Addendum-
I saw and evaluated the patient. I reviewed the resident�s note and agree with findings and plan as documented in the resident�s note. seen post op. pain much better controlled. seen with daughters present. called by nursing re urinary retention
requiring striaght cath. Full 12 point ROS reviewed and negative except as documented Exam: Vitals reviewed in chart GEN-nad heart sm @ RUSB lungs clear abd soft LE RLE hip aquacell in place. no blood noted on bandage +2 distal pulses B/L
# Acute traumatic right proximal femur intertrochanteric fracture
- doing well
- s/p right short CM nail on 02/11- Dr Hough
- WBAT PT OT pain control
- Lovenox for DVT proph x 35 days
# UTI
- asymptomatic but patient poor historian.
- ceftriaxone day 11/24
- reviewed c and s - ecoli R to amoxicillin
#Urinary Retention-
- resolved
- urinating witout difficulty
- DC flomax on DC
# Hypokalemia-
- resolved
- replete aggressively prn
- repeat BMP in am
# Mild CPK Elevation
-IV fluids
-found down unknown time by staff
# Right hip stage 2 PI, bilateral buttocks stage 1 PI, bilateral heels stage 1 PI
- POA
- cont wound care
# CAD/CABG -cont asa metoprolol stable monitor
#Essential hypertension - cont metoprolol stable monitor
# Hyperlipidemia -continue atorvastatin.
# Hypothyroidism -continue levothyroxine.
# Restless leg syndrome - cont pramipexole
# History of head and neck cancer
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
DNR -confirmed with daughter.
Dispo- DC to SNF in AM- patient resides at [facility]
Time spent coordinating care, review of plan of care with resident, review of records, med rec, consults, notes, labs, rads, d/w nursing and CM � 52 mins
Original Note:
Today's Communication/Plan
-
PT OT eval�discharge to SNF
Possible discharge tomorrow
DVT prophylaxis�Lovenox 35 days
Assessment / Plan
Assessment / Plan
#Acute traumatic right proximal femur intertrochanteric fracture s/p surgery ( Insertion right short cephalomedullary nail ). Today is POD#1
Fracture possibly due to fall
CT head�no evidence of acute bleed
X-ray hip- Intertrochanteric fracture of the right proximal femur.
Orthopedics consulted
Revised cardiac risk index for preoperative risk- class II risk
Operated - Insertion right short cephalomedullary nail
Pain control with analgesics as needed
Weightbearing as able
Resumed Lovenox, Aspirin
Regular diet
#Urinary tract infection
Patient is asymptomatic
Urine culture� E. coli
Continue ceftriaxone for 3 days.today is day 3.
#Anemia acute on chronic
Possibly due to blood loss from surgery/traumatic fracture
Normocytic
Check CBC a.m.
#Elevated CPK
CPK 425
IV fluids
Trend CMP
# Patient on 2 L oxygen
Try to wean oxygen as able
Incentive spirometry
#CAD/CABG -stable.
Echo 07/11/2022- 1. Normal left ventricular size and systolic function without regional wall
motion abnormalities. Estimated LV ejection fraction of 55 to 60% by visual
estimation, 56% by Gardner's method. Mild concentric left ventricular
hypertrophy. Stage I diastolic dysfunction suggestive of abnormal relaxation.
2. Normal right ventricular size and systolic function.
3. Thickened mitral valve leaflets with mitral annular calcification. Mild
mitral regurgitation.
4. Calcified trileaflet aortic valve with thickened leaflets and mildly
decreased excursion. Trace aortic regurgitation. Mild aortic stenosis. Peak
and mean gradients across the aortic valve are 21 and 9 mmHg respectively with
calculated aortic valve area of 1.9 cm2. Dimensionless index of 0.5.
5. Trace tricuspid regurgitation. Estimated PA pressure of 31 mmHg assuming a
right atrial pressure of 3 mmHg
6. No pericardial effusion
#Essential hypertension
Continue amlodipine, metoprolol titrate
#Hyperlipidemia
continue atorvastatin.
#Hypothyroidism
continue levothyroxine.
#Restless leg syndrome
Continue pramipexole
#History of head and neck cancer
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
#DVT prophylaxis
Continue Lovenox for 35 days
#PT/OT eval
Anticipated Discharge: Within 24 hours
Subjective/Interval History
-
Date of Service: February 13, 2024
Patient was able to void by herself in the morning. She reports having decreased appetite. She was able to ambulate, PT saw her yesterday. Reports having pain around the surgical site on the right hip.
Objective Data
-
Labs:
Laboratory Results
02/13/24
06:42
WBC 9.0
Hgb 8.4 L
Hct 24.4 L
Plt Count 177
Sodium 137
Potassium 4.0 D
Chloride 107
Carbon Dioxide 25
BUN 19 H
Creatinine 0.3 L
Glucose 143 H
Calcium 8.5
Total Bilirubin 0.7
AST 26
ALT 15
Alkaline Phosphatase 89
Vital Signs:
Vital Signs
Temp Pulse Resp BP Pulse Ox
97.2 F 65 16 131/56 91
02/13/24 07:15 02/13/24 07:15 02/13/24 07:15 02/13/24 07:15 02/13/24 08:00
I&O
02/12/24 02/13/24 02/14/24
06:59 06:59 06:59
Intake Total 2039 / 2039 1560 / 1560
Output Total 1500 / 1500 850 / 850
Balance 540 / 540 710 / 710
Review of Systems
-
All other systems: Reviewed and negative (As per HPI)
Physical Exam
-
General: No Apparent Distress
HEENT: Normocephalic and Atraumatic
Respiratory: Clear to Auscultation
Cardiac: S1/S2 and Murmur
Musculoskeletal: Other (Intact neurovasculature both lower extremities, Aquacel dressing, mildly soaked with blood on the operated site-right hip, )
Skin: Other (Abrasions on the right elbow, right posterior upper hip covered with dressing, bandage for draining ulcer below the mentum, pressure ulcers bilateral heels with dressing intact)
Neuro: Awake, Alert, Oriented and AO x 3
[2024-02-13] MEDS: STERILE WATER FOR INJECTION 10 ML IV (11:10)
[2024-02-13] MEDS: ROCEPHIN 1000 MG IV (11:10)
[2024-02-13] MEDS: TYLENOL 650 MG PO (12:40)
--- NOTE | 2024-02-13 12:49 | CM ---
Referral sent to [facility] waiting on a determination from [place], spoke with admissions at [facility] twice today.
Plan; Waiting on a bed at [facility].
--- NOTE | 2024-02-13 12:49 | W.PN.ORTHO ---
Today's Communication / Plan
-
83 yo F POD 1 s/p R hip CMN
WBAT RLE
Pain control
PT/OT
DVT ppx: recommend 28 days lovenox renally dosed
medical management per primary team
Follow up 2-3 weeks outpatient with myself for repeat evaluation
Assessment
.
Dressing:
Clean, dry and intact.
Subjective
.
.:
Patient resting comfortably in chair. Voices no complaints.
Vital Signs and Labs
.
Vital Signs and Labs:
Lab Results
02/13/24 06:42
02/13/24 06:42
Temp Pulse Resp BP Pulse Ox
97.5 F 59 16 126/54 91
02/13/24 11:40 02/13/24 11:40 02/13/24 11:40 02/13/24 11:40 02/13/24 11:40
Physical Exam
-
MSK RLE
Dressings in place without bloody drainage
moderate swelling thigh
+ehl/fhl, ankle df/pf
Distal extremity warm and pink
[2024-02-13] MEDS: ROXICODONE 5 MG PO ×2 (15:07→23:19)
[2024-02-13] MEDS: NEURONTIN 200 MG PO (21:11)
[2024-02-13] MEDS: MIRAPEX, GENERIC 1 MG PO (21:11)
[2024-02-13] MEDS: LIPITOR 10 MG PO (21:11)
[2024-02-14 05:29] LABS: Mean Corp Hgb Conc. 33.3 g/dL (33.0-37.0); Mean Corpuscular Hgb 29.5 pg (27.0-31.0); Mean Corpuscular Volume 88.6 fL (81.0-99.0); Mean Platelet Volume 9.9 fL (7.4-10.4); Platelet Count 181 10^3/uL (130-400); Red Blood Cell Count 2.71 10^6/uL (4.20-5.40); Red Cell Dist. Width 14.3 % (11.5-14.5); White Blood Cell Count 7.2 10^3/uL (4.8-10.8)
[2024-02-14 05:54] LABS: Blood Urea Nitrogen 19 mg/dl (7-17); Calcium 8.2 mg/dl (8.4-10.2); Carbon Dioxide 26 mmol/L (22-30); Chloride 107 mmol/L (98-107); Estimated Creatinine Clearance 55 ml/min; Glucose 89 mg/dl (70-99); Potassium 3.7 mmol/L (3.5-5.1); Sodium 137 mmol/L (135-145); eGFR > 60.00
[2024-02-14 07:20] VITALS: BP 131/85
[2024-02-14] MEDS: LOPRESSOR 12.5 MG PO (08:25)
[2024-02-14] MEDS: AMOXIL 500 MG PO ×2 (08:26→15:48)
[2024-02-14] MEDS: COLACE 100 MG PO (08:26)
[2024-02-14] MEDS: SYNTHROID 200 MCG PO (08:26)
[2024-02-14] MEDS: NORVASC 10 MG PO (08:26)
[2024-02-14] MEDS: FLOMAX 0.400000000000000022 MG PO (08:26)
[2024-02-14] MEDS: LOVENOX 40 MG SC (08:27)
[2024-02-14] MEDS: DESENEX/MITRAZOL/ZEASORB 1 APPLIC TOPICAL (08:27)
[2024-02-14 09:41] VITALS: BMI 19.9
[2024-02-14] MEDS: ROXICODONE 5 MG PO ×2 (11:28→15:53)
[2024-02-14 12:30] VITALS: BP 127/57; PULSE 58; O2SAT 91
[2024-02-14 13:00] VITALS: BP 127/57; PULSE 63; O2SAT 90
--- NOTE | 2024-02-14 14:15 | CM ---
Patient has been accepted at [facility] today and transport has been arranged through acute care for 6:30pm. IMM completed and placed on chart, patient's daughter, Sivakumar is aware of plan.
Plan; Skilled placement at [facility] today.
[facility]
Report [phone]
[2024-02-14 15:50] VITALS: BP 156/60
--- NOTE | 2024-02-14 18:22 | W.PN.HOSP.TC ---
Addendum entered and electronically signed by Dav Gutierrez MD 02/14/24 23:29:
Attending Addendum-
I saw and evaluated the patient. I reviewed the resident�s note and agree with findings and plan as documented in the resident�s note. pain much better controlled. seen with daughter present. ready to start rehab. Very pleasnat. Full 12 point ROS
reviewed and negative except as documented Exam: Vitals reviewed in chart GEN-nad heart sm @ RUSB lungs clear abd soft LE RLE hip aquacell in place. blood noted on bandage +2 distal pulses B/L
# Acute traumatic right proximal femur intertrochanteric fracture
- doing well
- s/p right short CM nail on 02/11- Dr Hough
- WBAT PT OT pain control
- Lovenox for DVT proph x 35 days
- DC to [facility]
# UTI
- asymptomatic but patient poor historian.
- completed ceftriaxone 11/24
- reviewed c and s - ecoli R to amoxicillin
#Urinary Retention-
- resolved
- urinating without difficulty
- DC flomax on DC
# Hypokalemia-
- resolved
- replete aggressively prn
- repeat BMP in am
# Mild CPK Elevation
-IV fluids
-found down unknown time by staff
# Right hip stage 2 PI, bilateral buttocks stage 1 PI, bilateral heels stage 1 PI
- POA
- cont wound care
# CAD/CABG -cont asa metoprolol stable monitor
#Essential hypertension - cont metoprolol stable monitor
# Hyperlipidemia -continue atorvastatin.
# Hypothyroidism -continue levothyroxine.
# Restless leg syndrome - cont pramipexole
# History of head and neck cancer
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
DNR -confirmed with daughter.
Dispo- DC to SNF at [facility]
Time spent coordinating care, review of plan of care with resident, DC planning, transition of care, review of records, med rec, consults, notes, labs, rads, d/w nursing and CM � 35 mins
Original Note:
Today's Communication/Plan
-
Plan for discharge
Assessment / Plan
Assessment / Plan
Assessment
Acute traumatic right proximal femur intertrochanteric fracture
(Insertion right short cephalomedullary nail ).
S/p mechanical fall, s/p surgery-postop day 2.
CT head�no evidence of acute bleed
X-ray hip- Intertrochanteric fracture of the right proximal femur.
Stable for discharge from orthopedic standpoint.
RCRI risk score-class II.
Optimal pain management with narcotics.
Weightbearing as able
Lovenox day 2, Aspirin on hold
Regular diet
Acute hypoxia-
Secondary to deconditioning from fall and prolonged immobilization.
Diminished breath sounds in the lower lobes.
Incentive spirometry ordered.
Patient on 2 L nasal cannula flow.
Wean off oxygen at SNF as possible.
Urinary tract infection
Patient is asymptomatic
Urine culture� E. coli
Ceftriaxone discontinued after day 3.
Anemia acute on chronic
Possibly due to blood loss from surgery/traumatic fracture
Normocytic
Check CBC a.m.
Elevated CPK
CPK 425. IV fluids given.
CAD/CABG -stable.
Echo 07/11/2022- 1. Normal left ventricular size and systolic function without regional wall
motion abnormalities. Estimated LV ejection fraction of 55 to 60% by visual
estimation, 56% by Gardner's method. Mild concentric left ventricular
hypertrophy. Stage I diastolic dysfunction suggestive of abnormal relaxation.
2. Normal right ventricular size and systolic function.
3. Thickened mitral valve leaflets with mitral annular calcification. Mild
mitral regurgitation.
4. Calcified trileaflet aortic valve with thickened leaflets and mildly
decreased excursion. Trace aortic regurgitation. Mild aortic stenosis. Peak
and mean gradients across the aortic valve are 21 and 9 mmHg respectively with
calculated aortic valve area of 1.9 cm2. Dimensionless index of 0.5.
5. Trace tricuspid regurgitation. Estimated PA pressure of 31 mmHg assuming a
right atrial pressure of 3 mmHg
6. No pericardial effusion
Essential hypertension
Continue amlodipine, metoprolol titrate
Hyperlipidemia
continue atorvastatin.
Hypothyroidism
continue levothyroxine.
Restless leg syndrome
Continue pramipexole
History of head and neck cancer
Jaw osteonecrosis -
secondary to prior radiation therapy for head and neck cancer. On chronic suppressive amoxicillin.
PT OT on board.
DVT prophylaxis
Continue Lovenox for 35 days
CODE STATUS-DNR.
Anticipated Discharge: Today
Subjective/Interval History
-
Date of Service: February 14, 2024
Overnight her sats dropped to 84%. Started on 2 L low flow nasal cannula-sats improved to 97%.
Patient reports her pain to be about 6-7/10.
Objective Data
-
Vital Signs:
Vital Signs
Temp Pulse Resp BP Pulse Ox
98.2 F 56 17 156/60 91
02/14/24 15:50 02/14/24 15:50 02/14/24 15:50 02/14/24 15:50 02/14/24 15:50
I&O
02/13/24 02/14/24 02/15/24
06:59 06:59 06:59
Intake Total 1560 / 1560 1979 / 1979
Output Total 850 / 850 250 / 250
Balance 710 / 710 1730 / 1730
Review of Systems
-
History Source: Patient
Constitutional: Reports No Symptoms
Respiratory: Reports No Symptoms
Cardiac: Reports No Symptoms
Abdomen/GI: Reports No Symptoms
Musculoskeletal: Reports Joint Pain (In the right hip)
Skin: Reports No Symptoms
Neuro: Reports No Symptoms
Endocrine: Reports No Symptoms
Physical Exam
-
General: Comfortable (On 2 L nasal cannula flow.)
HEENT: Normocephalic, Atraumatic, Moist Mucous Membranes and PERRLA
Respiratory: Clear to Auscultation (b/l upper lobes) and Decreased Breath Sounds (In bilateral lower lobes.); Negative Wheezes, Rales or Rhonchi
Cardiac: S1/S2, Irregular Rhythm and Murmur (Systolic murmur present); Negative Rub or Gallop
GI: Soft, Nontender, Nondistended and Normal Bowel Sounds
Genito-urinary: No Costovertebral Tender
Musculoskeletal: Other (Wound dressing in place without bloody drainage. Moderate swelling in the thigh. Bilateral 1+ pitting edema.)
Skin: Warm
Neuro: AO x 3 and No Motor Deficits
Psych: Calm
--- NOTE | 2024-02-14 18:33 | W.DCSUMMARY ---
Addendum entered and electronically signed by Dav Gutierrez MD 02/14/24 23:26:
Attending Addendum:
Read reviewed and agree. See same day progress note for additional details.
Rick Gutierrez MD
Original Note:
Documented by User: Bessie Montano MD, Resident 02/14/24 18:57
Discharge Summary
Discharge Data
Date of Admission: 02/10/24
Date of Discharge: 02/14/24
-
Pending Results: No
Hospital Course
Assessment-
83-year-old female found down on the ground at [place] and hence is living and unable to get up, found after 3 hours and brought to the hospital on 02/10/2024 is diagnosed with of Acute traumatic right proximal femur intertrochanteric fracture s/p
mechanical fall.
Impression-
Acute traumatic right proximal femur intertrochanteric fracture
Acute urinary retention s/p Insertion right short cephalomedullary nail
Hypoxia secondary to deconditioning
Asymptomatic UTI
Elevated CPK at 425.
Conditions [employer]-
CAD status post CABG
Essential hypertension
Hyperlipidemia
Hypothyroidism
Restless leg syndrome
History of head and neck cancer
S/p radiotherapy-jaw osteonecrosis.
Hospital course-
Patient was admitted status post fall after a diagnosis of acute traumatic right proximal femur intertrochanteric fracture on 02/10/2024. During for 4-day hospital course, orthopedics was consulted, decision was made to proceed with surgery. Given
her history of CAD s/p CABG, her RCRI index was evaluated and she was at intermediate risk for the planned surgery. Status postsurgery patient developed acute urinary retention for which patient was straight cathed once, and patient was given
tamsulosin following straight cath. Patient was also diagnosed with asymptomatic UTI with E. coli and elevated CPK at 425 upon admission for which she is treated with IV ceftriaxone x 3 days and IV fluids. Patient developed hypoxia during her
course of hospitalization probably secondary to deconditioning and patient was started on 2 L nasal cannula flow, incentive spirometry. Due to elevated risk of developing DVT in hip fractures patient was put on Lovenox prophylaxis for 35 days based
on recommendations. Patient's hemoglobin at the time of discharge is found to be at 8.0, recommended H&H monitoring at time of discharge.
For her conditions pre-existing to this admission-her home medications were continued-amlodipine, metoprolol, atorvastatin, levothyroxine, pramipexole, suppressive amoxicillin for jaw osteonecrosis.
Investigations-
Hip x-ray 02/10/2024 -
IMPRESSION: Intertrochanteric fracture of the right proximal femur.
Chest x-ray-02/10/2024
IMPRESSION:
Lungs appear hypoinflated compared to previous radiograph. Parenchymal opacity within the left lower lobe is most likely atelectasis, although pneumonia is difficult to exclude radiographically.
Stable elevation right hemidiaphragm.
Head CT-02/10/2024
IMPRESSION:
1. No CT evidence for acute intracranial hemorrhage or scalp soft tissue hematoma.
2. Mild diffuse cerebral and cerebellar volume loss.
3. Mild periventricular white matter leukoaraiosis.
Hip x-ray 02/12/2024-
IMPRESSION: Right femoral gamma nail is in expected position. Fracture fragments are in near anatomic alignment.
Discharge recommendations-
Lovenox for DVT prophylaxis x 35 days
Continue home medication regimen.
PT, OT.
Wean off oxygen as tolerated. Incentive spirometry.
Tamsulosin for urinary retention.
Discharge Plan
-
Patient Disposition: [facility]/SNF
Discharge Diagnosis/Procedures: Acute traumatic right proximal femur intertrochanteric fracture
Condition: Fair
Diet: As tolerated
Activity: With assistance and As tolerated
Additional Activity: limited weight bearing with supervision
Driving Restrictions: No driving
Bathing Restrictions: After dressing removed
Blood Work: Follow H & H, discharging on O2, wean off oxygen as tolerated.
Other Services: PT and OT
Activity Restrictions/Additional Instructions:
Wound Care Instructions
R upper hip and buttocks: clean with saline, silicone foam change q 2 days and prn soilage.
Perineum: after cleaning fungal powder bid
Air chair cushion when sitting
Follow up at wound care center if abrasions not healing, call for an appointment.
Referrals:
Lucia Allen PA-C [Family Provider] -
Additional Discharge Medication Instructions: Discharge on oxygen, wean off oxygen as possible.
Prescriptions:
New
tamsulosin 0.4 mg Capsule
0.4 mg PO DAILY 30 Days Qty: 30 0RF
enoxaparin 40 mg/0.4 mL Syringe
40 mg SC DAILY 35 Days Qty: 35 0RF
Continued
atorvastatin 10 MG tablet
10 mg PO HS
pramipexole 0.5 MG tablet
1 mg PO HS
hydrocodone-acetaminophen 1 TABLET tablet
1 tab PO Q6HPRN PRN (Reason: moderate pain)
metoprolol tartrate 50 MG tablet
12.5 mg PO BID
acetaminophen [Tylenol] 325 mg Tablet
650 mg PO Q6HPRN PRN (Reason: MILD PAIN)
oxybutynin chloride 10 mg Tablet Extended Release 24hr
10 mg PO DAILY
amoxicillin 500 mg Tablet
500 mg PO Q8H
amlodipine [Norvasc] 10 mg Tablet
10 mg PO DAILY
levothyroxine [Synthroid] 200 mcg Tablet
200 mcg PO DAILY
gabapentin 100 mg Capsule
200 mg PO HS
Held
aspirin 81 MG tablet,chewable
81 mg PO DAILY
Hold Instructions: Resume on 03/21/24.
Discharge Orders:
Discharge Patient (As Directed); Ordered 02/14/24
Ordered By: Bessie Montano
Discharge Date and Time
Discharge Date/Time: 02/14/24 19:10
Print Language: SAUDI ARABIAN

Documented by User: Dav Gutierrez MD 02/14/24 23:25
Discharge Summary
Discharge Data
Date of Admission: 02/10/24
Date of Discharge: 02/14/24
Discharge Plan
-
Patient Disposition: [facility]/SNF
Discharge Diagnosis/Procedures: Acute traumatic right proximal femur intertrochanteric fracture
Condition: Fair
Diet: As tolerated
Activity: With assistance and As tolerated
Additional Activity: limited weight bearing with supervision
Driving Restrictions: No driving
Bathing Restrictions: After dressing removed
Blood Work: Follow H & H, discharging on O2, wean off oxygen as tolerated.
Other Services: PT and OT
Activity Restrictions/Additional Instructions:
Wound Care Instructions
R upper hip and buttocks: clean with saline, silicone foam change q 2 days and prn soilage.
Perineum: after cleaning fungal powder bid
Air chair cushion when sitting
Follow up at wound care center if abrasions not healing, call for an appointment.
Referrals:
Lucia Allen PA-C [Family Provider] -
Additional Discharge Medication Instructions: Discharge on oxygen, wean off oxygen as possible.
Prescriptions:
New
tamsulosin 0.4 mg Capsule
0.4 mg PO DAILY 30 Days Qty: 30 0RF
enoxaparin 40 mg/0.4 mL Syringe
40 mg SC DAILY 35 Days Qty: 35 0RF
Continued
atorvastatin 10 MG tablet
10 mg PO HS
pramipexole 0.5 MG tablet
1 mg PO HS
hydrocodone-acetaminophen 1 TABLET tablet
1 tab PO Q6HPRN PRN (Reason: moderate pain)
metoprolol tartrate 50 MG tablet
12.5 mg PO BID
acetaminophen [Tylenol] 325 mg Tablet
650 mg PO Q6HPRN PRN (Reason: MILD PAIN)
oxybutynin chloride 10 mg Tablet Extended Release 24hr
10 mg PO DAILY
amoxicillin 500 mg Tablet
500 mg PO Q8H
amlodipine [Norvasc] 10 mg Tablet
10 mg PO DAILY
levothyroxine [Synthroid] 200 mcg Tablet
200 mcg PO DAILY
gabapentin 100 mg Capsule
200 mg PO HS
Held
aspirin 81 MG tablet,chewable
81 mg PO DAILY
Hold Instructions: Resume on 03/21/24.
Discharge Orders:
Discharge Patient (As Directed); Ordered 02/14/24
Ordered By: Bessie Montano
Discharge Date and Time
Discharge Date/Time: 02/14/24 19:10
Print Language: SAUDI ARABIAN
== END 2024-02-14 19:10 | DRG 956 ==
LOC: 2 SOUTH 13:54
PROVIDERS: Student in an Organized Health Care Education/Training Program; ADMITTING PHYSICIAN Hospitalist; ATTENDING PHYSICIAN Family Medicine; CONSULT PHYSICIAN Orthopaedic Surgery; EMERGENCY PHYSICIAN Emergency Medicine; FAMILY PHYSICIAN Physician Assistant Medical
PROC: 0QS606Z Reposition Right Upper Femur with Intramedullary Internal Fixation Device, Open Approach (ICD-10-PCS; 2024-02-12)
DX: S72.91XA Unspecified fracture of right femur, initial encounter for closed fracture (principal); T79.6XXA Traumatic ischemia of muscle, initial encounter; D62 Acute posthemorrhagic anemia; N39.0 Urinary tract infection, site not specified; M87.9 Osteonecrosis, unspecified; Z87.891 Personal history of nicotine dependence; Z79.82 Long term (current) use of aspirin; I25.10 Atherosclerotic heart disease of native coronary artery without angina pectoris; Z95.1 Presence of aortocoronary bypass graft; I10 Essential (primary) hypertension; E78.00 Pure hypercholesterolemia, unspecified; E03.9 Hypothyroidism, unspecified; G25.81 Restless legs syndrome; Z66 Do not resuscitate; E87.6 Hypokalemia; L89.212 Pressure ulcer of right hip, stage 2; L89.322 Pressure ulcer of left buttock, stage 2; L89.621 Pressure ulcer of left heel, stage 1; L89.622 Pressure ulcer of left heel, stage 2; L89.312 Pressure ulcer of right buttock, stage 2
CPT/HCPCS: 70450; 71046; 73502; 73552; 76000; 80048; 80053; 81003; 81015; 82550; 83605; 83735; 85025; 85027; 86850; 86900; 86901; 87040; 87070; 87086; 87088; 87186; 93005; 96360; 97110; 97162; 97167; 97530; 97535; 99291; C1713

== ENCOUNTER → 2024-02-19 09:17 | Outpatient (REF) | payer MEDICARE, BC, SELFPAY ==
[2024-02-19 11:31] LABS: Hematocrit 25.7 % (37.0-47.0); Hemoglobin 8.6 g/dL (12.0-16.0); Mean Corp Hgb Conc. 33.5 g/dL (33.0-37.0); Mean Corpuscular Hgb 29.4 pg (27.0-31.0); Mean Corpuscular Volume 87.7 fL (81.0-99.0); Mean Platelet Volume 9.3 fL (7.4-10.4); Platelet Count 291 10^3/uL (130-400); Red Blood Cell Count 2.93 10^6/uL (4.20-5.40); Red Cell Dist. Width 14.4 % (11.5-14.5); White Blood Cell Count 8.3 10^3/uL (4.8-10.8)
[2024-02-19 11:41] LABS: Blood Urea Nitrogen 20 mg/dl (7-17); Calcium 8.5 mg/dl (8.4-10.2); Carbon Dioxide 27 mmol/L (22-30); Chloride 99 mmol/L (98-107); Glucose 83 mg/dl (70-99); Magnesium 1.7 mg/dl (1.6-2.3); Potassium 3.4 mmol/L (3.5-5.1); Sodium 133 mmol/L (135-145); eGFR > 60.00
[2024-02-19 12:11] LABS: TSH 0.14 uIU/ml (0.47-4.68)
== END ==
LOC: OLABWHC 09:17
PROVIDERS: ATTENDING PHYSICIAN Internal Medicine
DX: E03.9 Hypothyroidism, unspecified (principal); I25.10 Atherosclerotic heart disease of native coronary artery without angina pectoris; E78.5 Hyperlipidemia, unspecified; Z79.82 Long term (current) use of aspirin
CPT/HCPCS: 36415; 80048; 83735; 84443; 85027

== ENCOUNTER → 2024-03-04 11:14 | Outpatient (REF) | payer MEDICARE, BC, SELFPAY ==
[2024-03-04 12:23] LABS: Total Protein 5.8 g/dl (6.3-8.2)
== END ==
LOC: OLABWHC 11:14
PROVIDERS: ATTENDING PHYSICIAN Internal Medicine
DX: J96.01 Acute respiratory failure with hypoxia (principal); E87.6 Hypokalemia; I10 Essential (primary) hypertension
CPT/HCPCS: 36415; 82040; 84155

== ENCOUNTER → 2024-04-30 11:02 | Outpatient (REF) | payer MEDICARE, BC, SELFPAY ==
[2024-04-30 14:11] LABS: Total Protein 5.6 g/dl (6.3-8.2)
== END ==
LOC: OLABWHC 11:02
PROVIDERS: ATTENDING PHYSICIAN Internal Medicine
DX: Z85.89 Personal history of malignant neoplasm of other organs and systems (principal); S72.91XD Unspecified fracture of right femur, subsequent encounter for closed fracture with routine healing; E78.5 Hyperlipidemia, unspecified; M87.9 Osteonecrosis, unspecified; D64.9 Anemia, unspecified; M62.81 Muscle weakness (generalized)
CPT/HCPCS: 36415; 82040; 84155

== ENCOUNTER → 2024-06-19 12:13 | Outpatient (REF) | payer MEDICARE, BC, SELFPAY ==
[2024-06-19 12:36] LABS: % Basophils 0.4 % (0-2); % Eosinophils 4.4 % (0-6); % Immature Granulocytes 0.5 % (0-0.5); % Lymphocytes 23.9 % (20.5-51.1); % Monocytes 11.4 % (1.7-9.3); % Neutrophils 59.4 % (42.2-75.2); Absolute Eosinophils 0.3 10^3/uL (0-0.7); Absolute Lymphocytes 1.9 10^3/uL (1.2-3.4); Absolute Monocytes 0.9 10^3/uL (0.1-0.6); Absolute Neutrophils 4.6 10^3/uL (1.4-6.5); Hemoglobin 10.2 g/dL (12.0-16.0); Mean Corp Hgb Conc. 32.9 g/dL (33.0-37.0); Mean Platelet Volume 9.5 fL (7.4-10.4); Nucleated Red Blood Cells % 0 %; Platelet Count 263 10^3/uL (130-400); Red Blood Cell Count 3.78 10^6/uL (4.20-5.40); Red Cell Dist. Width 16.7 % (11.5-14.5); White Blood Cell Count 7.7 10^3/uL (4.8-10.8)
== END ==
LOC: OLABWHC 12:13
PROVIDERS: ATTENDING PHYSICIAN Internal Medicine
DX: M27.2 Inflammatory conditions of jaws (principal); M87.9 Osteonecrosis, unspecified; D64.9 Anemia, unspecified
CPT/HCPCS: 36415; 85025

== ENCOUNTER → 2025-02-25 10:23 | Outpatient (REF) | payer MEDICARE, BC, SELFPAY ==
[2025-02-25 11:36] LABS: Hemoglobin 11.5 g/dL (12.0-16.0); Mean Corp Hgb Conc. 32.9 g/dL (33.0-37.0); Mean Corpuscular Hgb 28.3 pg (27.0-31.0); Mean Corpuscular Volume 86.2 fL (81.0-99.0); Mean Platelet Volume 9.3 fL (7.4-10.4); Platelet Count 250 10^3/uL (130-400); Red Blood Cell Count 4.06 10^6/uL (4.20-5.40); Red Cell Dist. Width 13.9 % (11.5-14.5); White Blood Cell Count 6.5 10^3/uL (4.8-10.8)
[2025-02-25 12:15] LABS: Blood Urea Nitrogen 14 mg/dl (7-17); Calcium 9.2 mg/dl (8.4-10.2); Carbon Dioxide 27 mmol/L (22-30); Chloride 109 mmol/L (98-107); Glucose 87 mg/dl (70-99); Magnesium 1.7 mg/dl (1.6-2.3); Potassium 3.8 mmol/L (3.5-5.1); Sodium 141 mmol/L (135-145); eGFR > 60.00
[2025-02-25 12:20] LABS: TSH < 0.02 uIU/ml (0.47-4.68)
[2025-02-25 12:45] LABS: Free T4 2.63 ng/dl (0.78-2.19)
== END ==
LOC: OLABWHC 10:23
PROVIDERS: ATTENDING PHYSICIAN Family Medicine
DX: E03.9 Hypothyroidism, unspecified (principal); I10 Essential (primary) hypertension; I25.10 Atherosclerotic heart disease of native coronary artery without angina pectoris; E78.5 Hyperlipidemia, unspecified; D64.9 Anemia, unspecified
CPT/HCPCS: 36415; 80048; 83735; 84439; 84443; 85027

== ENCOUNTER → 2025-04-30 09:11 | Outpatient (REF) | payer MEDICARE, BC, SELFPAY ==
[2025-04-30 12:09] LABS: TSH 0.27 uIU/ml (0.47-4.68)
== END ==
LOC: OLABWHC 09:11
PROVIDERS: ATTENDING PHYSICIAN Family Medicine; OTHER PHYSICIAN Registered Nurse
DX: E03.9 Hypothyroidism, unspecified (principal)
CPT/HCPCS: 36415; 84439; 84443

== ENCOUNTER → 2025-07-02 09:04 | Outpatient (REF) | payer MEDICARE, BC, SELFPAY ==
[2025-07-02 10:38] LABS: TSH 6.63 uIU/ml (0.47-4.68)
== END ==
LOC: OLABWHC 09:04
PROVIDERS: ATTENDING PHYSICIAN Family Medicine
DX: E03.9 Hypothyroidism, unspecified (principal)
CPT/HCPCS: 36415; 84439; 84443

== ENCOUNTER → 2025-08-05 11:03 | Outpatient (REF) | payer MEDICARE, BC, SELFPAY ==
[2025-08-05 11:29] LABS: Hematocrit 35.2 % (37.0-47.0); Hemoglobin 11.1 g/dL (12.0-16.0); Mean Corp Hgb Conc. 31.5 g/dL (33.0-37.0); Mean Corpuscular Volume 90.0 fL (81.0-99.0); Platelet Count 272 10^3/uL (130-400); Red Cell Dist. Width 15.3 % (11.5-14.5)
[2025-08-05 11:39] LABS: ALT (SGPT) 12 U/L (0-35); AST (SGOT) 20 U/L (14-36); Albumin 3.5 g/dl (3.5-5.0); Alkaline Phosphatase 106 U/L (38-126); Blood Urea Nitrogen 8 mg/dl (7-17); Calcium 8.9 mg/dl (8.4-10.2); Carbon Dioxide 28 mmol/L (22-30); Chloride 106 mmol/L (98-107); Glucose 82 mg/dl (70-99); Potassium 4.3 mmol/L (3.5-5.1); Sodium 138 mmol/L (135-145); Total Protein 6.9 g/dl (6.3-8.2); eGFR > 60.00
[2025-08-05 12:33] LABS: Ferritin 137.0 ng/ml (11.1-264.0)
== END ==
LOC: OLABWHC 11:03
PROVIDERS: ATTENDING PHYSICIAN Family Medicine
DX: I10 Essential (primary) hypertension (principal); C76.0 Malignant neoplasm of head, face and neck; E87.6 Hypokalemia; D64.9 Anemia, unspecified
CPT/HCPCS: 36415; 80053; 82728; 85027

== ENCOUNTER → 2025-08-13 11:10 | Outpatient (REF) | payer MEDICARE, BC, SELFPAY ==
[2025-08-13 13:11] LABS: TSH 7.37 uIU/ml (0.47-4.68)
[2025-08-13 14:07] LABS: HDL Cholesterol 53 mg/dl; LDL Cholesterol, Calculated 51 mg/dl; Very Low Density Lipoprotein 13 mg/dl (0-30)
== END ==
LOC: OLABWHC 11:10
PROVIDERS: ATTENDING PHYSICIAN Family Medicine
DX: E03.9 Hypothyroidism, unspecified (principal); E78.5 Hyperlipidemia, unspecified
CPT/HCPCS: 36415; 80061; 84439; 84443

== ENCOUNTER → 2025-09-14 11:22 | Outpatient (REF) | payer MEDICARE, BC, SELFPAY ==
[2025-09-14 12:43] LABS: TSH 4.41 uIU/ml (0.47-4.68)
== END ==
LOC: OLABWHC 11:22
PROVIDERS: ATTENDING PHYSICIAN Family Medicine
DX: E03.9 Hypothyroidism, unspecified (principal)
CPT/HCPCS: 36415; 84439; 84443